=== PATIENT | male | born 1995 | race Caucasian/White ===

== ENCOUNTER 2017-10-28 02:56 | Emergency (ER) | payer BC, SELFPAY | END 2017-10-28 03:29 | disposition home or self-care (01) | LOC: NAV ERS 02:56 | DX: S00.33XA Contusion of nose, initial encounter (principal); R04.0 Epistaxis; I10 Essential (primary) hypertension; Y04.0XXA Assault by unarmed brawl or fight, initial encounter; Y93.75 Activity, martial arts | CPT/HCPCS: 99283 ==

== ENCOUNTER 2021-04-05 16:04 | Emergency (ER) | payer BC | END 2021-04-05 16:46 | disposition home or self-care (01) | LOC: NAV ERS 16:04 | DX: Z77.21 Contact with and (suspected) exposure to potentially hazardous body fluids (principal); J45.909 Unspecified asthma, uncomplicated | CPT/HCPCS: 99283 ==

== ENCOUNTER 2023-05-18 11:35 | Outpatient (CLI) | payer BC | END 2023-05-18 11:36 | disposition home or self-care (01) | LOC: NAV RAD 11:35 | PROVIDERS: ATTEND Family Medicine | DX: M25.541 Pain in joints of right hand (principal); S63.91XA Sprain of unspecified part of right wrist and hand, initial encounter; M89.8X4 Other specified disorders of bone, hand ==